=== PATIENT | male | born 1990 | race Native Hawaiian/Other Pacific Islander ===

== ENCOUNTER 2018-04-27 16:12 | Emergency (ER) | payer OTHER ==
[~2018-04-27] VITALS: Ht 177.8 cm; Wt 98.9 kg
[2018-04-27 16:17] VITALS: BP 160/80; TEMP 97.5
== END 2018-04-27 17:15 | disposition home or self-care (01) ==
LOC: ED 16:12
DX: S16.1XXA Strain of muscle, fascia and tendon at neck level, initial encounter (principal); M54.89 Other dorsalgia; V49.3XXA Car occupant (driver) (passenger) injured in unspecified nontraffic accident, initial encounter
CPT/HCPCS: 80307; 99282

== ENCOUNTER 2019-07-04 23:30 | Emergency (ER) | payer OTHER ==
[~2019-07-04] VITALS: Ht 180.3 cm; Wt 87.5 kg
[2019-07-05 00:55] VITALS: BP 123/62; TEMP 97.6
== END 2019-07-05 00:55 | disposition home or self-care (01) ==
LOC: ED 23:30
DX: S61.230A Puncture wound without foreign body of right index finger without damage to nail, initial encounter (principal); Y35.891A Legal intervention involving other specified means, law enforcement official injured, initial encounter
CPT/HCPCS: 36415; 80074; 87535; 90471; 90715; 99283; G0432